=== PATIENT | male | born 1985 | race Hispanic/Latino ===

== ENCOUNTER 2024-12-09 08:31 | Emergency (ER) | payer BC, SELFPAY ==
[2024-12-09 08:34] VITALS: BP 169/114
[2024-12-09 09:03] LABS: COVID-19 Antigen Negative (Negative)
[2024-12-09] MEDS: MOTRIN 800 MG PO (09:45)
--- NOTE | 2024-12-09 09:48 | ED.GENMED ---
History of Present Illness
General
Chief Complaint: Cold/Flu/URI Symptoms
Source: patient
Exam Limitations: none
Time Seen by Provider: 12/09/24 09:28
Nursing documentation reviewed up to this point in time: agreed with
History of Present Illness
History of Present Illness:
39-year-old male with no medical problems presents with URI symptoms for 4 days including a headache, dry cough, fever, body aches, 1 episode of vomiting, sore throat. His son is also sick. He has not had neck stiffness, confusion, diarrhea,
weakness. He denies chronic medical problems. He last took Tylenol and diclofenac yesterday.
He did not take anything for symptoms today.
Past History
Past History
ED Past Medical History: None
ED Past Surgical History: None
Social History
Tobacco: Smoker
Alcohol: None
Drug: None
Personal:
Review of Systems
Review of Systems
Allergies reviewed?: Yes
All Other Systems: Not applicable
Phy Exam
Physical Exam
Physical Exam:
GENERAL: Alert , in no apparent distress
EYE: pupils equal and reactive
NECK: Supple
ENT: b/l TM s clear, pharynx erythematous but no tonsillar hypertrophy or exudates
CARDIAC: Regular rate and rhythm, no edema
LUNGS: Clear breath sounds bilaterally, no acute respiratory distress, no wheezes/rales/rhonchi, occ cough
ABDOMEN: Soft, without focal tenderness, no r/g, no cvat, normal bowel sounds
NEUROLOGICAL: Alert and oriented, no focal neuro deficits
SKIN: Warm and dry, skin intact.
MUSCULOSKELETAL: No edema, well perfused.
PSYCH: Normal and appropriate interaction.
Course
Orders/Labs/Results
Orders:
Orders
12/09/24 08:40
COVID-19 Antigen Urgent
Source: Nasal Swab
Influenza A+B Rapid Molecular Urgent
ZEESHAN Source: Nasal Swab
Specimen Description:
12/09/24 09:38
Ibuprofen [Motrin] 800 mg PO NOW STA
CR Chest - 2 Views Urgent
Comment:
Reason For Exam: fever, cough
12/09/24 09:43
Rapid Strep Group A Urgent
ZEESHAN Source: Throat/Pharynx
Specimen Description:
Date Specimen was Collected: 12/09/24
Time Specimen was Collected: 09:40
12/09/24 10:04
Amoxicillin 875 mg/Clav 125 mg [Augmentin 875 mg/125 mg] 1 tablet PO NOW STA
Azithromycin [Zithromax] 500 mg PO NOW STA
Vital Signs
Initial and Last Documented VS:
Initial Vital Signs
Temp Pulse Resp BP Pulse Ox
37.1 C 106 18 169/114 99
12/09/24 08:34 12/09/24 08:34 12/09/24 08:34 12/09/24 08:34 12/09/24 08:34
Last Documented Vital Signs
Temp Pulse Resp BP Pulse Ox
36.6 C 98 18 150/107 98
12/09/24 10:29 12/09/24 10:29 12/09/24 10:29 12/09/24 10:29 12/09/24 10:29
MDM/Problems Addressed
Differential Diagnosis Includes:
flu, covid, pneumonia, strep
MDM/Problems Addressed:
39 y/o M with no chronc medical problems
here with URI sxs for 4 days
fever, sore throat,cough, bodyaches
no sob
nontoxic appearing
febrile (100) normal pulse ox
Lungs were clear but he did have a cough, chest x-ray independently reviewed by me, shows a right upper lobe pneumonia. I discussed the case with radiologist. He would recommend repeat chest x-ray to ensure resolution. Patient was given an
[facility] clinic. Flu and COVID were negative. Augmentin, Zithromax, antipyretic
*Critical Care Note
Total Time (30-74mins, 75-104mins- exclusive of procedures): Not Applicable
ED Attending Note
-
Portions of this chart may have been created with voice recognition software.� Occasional wrong word or��sound alike� substitutions may have occurred due to the inherent limitations of voice recognition software.
Discharge Plan
Departure
Patient Disposition: Home (Routine Discharge)
Date of Disposition: 12/09/24
Time of Disposition: 10:40
Patient with high blood pressure during this ER visit?: Yes
Condition: Fair
Covid-19: Negative COVID-19
Discharge Problem:
Pneumonia
Instructions: Pneumonia in adults - Discharge instructions, BLOOD PRESSURE
Prescriptions:
New
amoxicillin-pot clavulanate 875-125 mg tablet
1 tab PO BID Qty: 14 0RF
azithromycin [Zithromax] 250 mg tablet
250 mg PO DAILY Qty: 4 0RF
Referrals:
[facility] - Follow up in 10 days (call for appointment)
Stand Alone Forms: Return to Work
Activity Restrictions/Additional Instructions:
you have pneumonia
take augmentin twice a day for 7 days ( starting tonight) and azithromycin once a day for 4 days starting tomorrow.
you tested negative for flu and covid.
take tylenol and motrin for fevers/aches.
drink fluids, rest
you will need a repeat chest xray in 3-4 weeks to make sure that this pneumonia cleared up.
follow up with your doctor or free clinic
return for: chest pain, worse symptoms, shortness of breath, vomiting, lethargy or any concerns.
tienes neumon�a
tome augmentin dos veces al d�a derian 7 d�as (a partir de esta noche) y azitromicina ailyn vez al d�a derian 4 d�as a partir de ma�titus.
diste negativo en gripe y covid.
tome tylenol y motrin para la fiebre o los nidia.
beber l�quidos, descansar
Necesitar� repetir la radiograf�a de t�rax en 3 a 4 semanas para asegurarse de que la neumon�a haya desaparecido.
baldemar un seguimiento con emmanuel m�dico o cl�britt gratuita
Regrese por: dolor en el pecho, empeoramiento de los s�ntomas, dificultad para respirar, v�mitos, letargo o cualquier inquietud.
Interventions
Interventions:
*Risk Screen - Suicide Last Done: 12/09/24 08:34
*General Assessment Last Done: 12/09/24 08:34
*Neglect/Abuse Screening Last Done: 12/09/24 08:34
ED- Fall Risk Assessment Last Done: 12/09/24 09:55
*ED COVID-19 Vaccine History Last Done: 12/09/24 08:34
*Nursing Disposition Last Done: 12/09/24 10:45
ED- Pulmonary Assessment Last Done: 12/09/24 09:55
Discharge Date and Time
Discharge Date/Time: 12/09/24 10:45
Print Language: [id number]
[2024-12-09] MEDS: ZITHROMAX 500 MG PO (10:19)
[2024-12-09] MEDS: AUGMENTIN 875 MG/125 MG 1 TABLET PO (10:19)
[2024-12-09 10:29] VITALS: BP 150/107
== END 2024-12-09 10:45 | disposition home or self-care (01) ==
LOC: EMR 08:31
PROVIDERS: EMERGENCY PHYSICIAN Emergency Medicine
DX: J18.9 Pneumonia, unspecified organism (principal); F17.200 Nicotine dependence, unspecified, uncomplicated; Z11.52 Encounter for screening for COVID-19
CPT/HCPCS: 99284; 71046; 87070; 87147; 87502; 87811; 87880